=== PATIENT | female | born 1965 | race Caucasian/White ===

== ENCOUNTER → 2017-11-04 | Outpatient (CLI) | payer BC ==
--- NOTE | 2017-11-11 08:06 | MM ---
Reason for exam: clinical finding. Last mammogram was performed 1 year and 7 months ago. History: Patient is postmenopausal, has history of breast cancer at age 37, and had first child at age 36. Malignant ultrasound-guided core biopsy of the left breast, June 04, 2003. Core biopsy of the left breast. Lumpectomy of the left breast. Chemotherapy. Radiation therapy of the left breast. Took hormonal contraceptives for 5 years. Took tamoxifen for 5 years 6 months beginning at age 37. Physical Findings: Nurse did not find any significant physical abnormalities on exam. MG 3D Diag Mammo W/Cad LT CC and MLO view(s) were taken of the left breast. Prior study comparison: March 10, 2017, mammogram, performed at [facility]. March 10, 2017, left breast ultrasound, performed at [facility]. May 12, 2016, mammogram, performed at [facility]. May 12, 2016, left breast ultrasound, performed at [facility]. March 24, 2016, bilateral MG 3d diag mammo w/cad [facility]. April 09, 2014, bilateral MG diagnostic mammo w CAD [facility]. The breast tissue is heterogeneously dense. This may lower the sensitivity of mammography. Post surgical and post therapy changes in the left breast. Surgical scar posteriorly appears stable. No significant new findings when compared with previous films. These results were verbally communicated with the patient on 11/10/17. ASSESSMENT: Incomplete: need additional imaging evaluation, BI-RAD 0 RECOMMENDATION: Ultrasound of the left breast.
--- NOTE | 2017-11-11 08:28 | USB ---
Reason for exam: clinical finding. History: Patient is postmenopausal, has history of breast cancer at age 37, and had first child at age 36. Malignant ultrasound-guided core biopsy of the left breast, June 04, 2003. Core biopsy of the left breast. Lumpectomy of the left breast. Chemotherapy. Radiation therapy of the left breast. Took hormonal contraceptives for 5 years. Took tamoxifen for 5 years 6 months beginning at age 37. US Breast LT Left breast ultrasound includes all four quadrants, the retroareolar region and axilla. Finding demonstrates a 0.4 x 0.3 x 0.4cm oval, circumscribed lesion too small to characterize at 5 o'clock stable from 03/10/17 and a scar with shadowing at the 5 o'clock lumpectomy site. No abnormality seen in the axilla. These results were verbally communicated with the patient and result sheet given to the patient on 11/04/17. ASSESSMENT: Benign, BI-RAD 2 RECOMMENDATION: Follow-up diagnostic mammogram of both breasts in 4 months. Back on schedule. Manage on a clinical basis with regard to left breast pain and nipple discharge. Suspicious discharge that would warrant further evaluation is clear or bloody spontaneous discharge localized to a single pore on the nipple. MTDD
== END | disposition home or self-care (01) ==
LOC: RADMAMWWP 08:42
PROVIDERS: ATTEND Internal Medicine Hematology & Oncology
DX: R92.8 Other abnormal and inconclusive findings on diagnostic imaging of breast (principal); N64.52 Nipple discharge; N63.20 Unspecified lump in the left breast, unspecified quadrant; Z85.3 Personal history of malignant neoplasm of breast
CPT/HCPCS: 77065; 76641; G0279

== ENCOUNTER → 2017-11-22 | Outpatient (CLI) | payer BC ==
--- NOTE | 2017-11-23 09:02 | BMR ---
EXAMINATION TYPE: MR breast BILAT wo/w con DATE OF EXAM: 11/22/2017 9:10 PM COMPARISON: Mammography of November 04, 2017 and ultrasound same day. Outside ultrasound and mammography 03/10/2017. Outside ultrasound on 05/12/2016. HISTORY: Lumpectomy Left 2002, Breast CA 2003,Gadavist 7.5, Pt is Menopausal CONTRAST: The patient was injected with 7.5 mL intravenous Gadavist gadolinium contrast. TECHNIQUE: Precontrast T1 and T2 coronal, axial and high-resolution STIR sagittal images were acquire d. Postcontrast dynamic images were acquired.This study was processed using a [employer] computer-aid ed detection system to optimize radiologist interpretation by generating multiplanar and three-dimens ional reconstructions, creating subtraction images from the dynamic contrast data and computing tumor volumes and dimensions. FINDINGS: Right breast: There is scattered fibroglandular tissue seen with mild adenosis present. There is no evidence for an enhancing mass or pathologic enhancement. No skin thickening or nipple retraction is seen. No axillary adenopathy present. Left breast: The left breast is diminutive in size secondary to prior history of lumpectomy and radia tion therapy. There is scattered fibroglandular tissue seen with mild adenosis present. 4 mm left 5:0 0 lesion corresponding to the ultrasound abnormality demonstrates nonspecific enhancement. Consider t issue diagnosis. Lesion is stable dating back to 2017. Slight increase in size from 2016 ultrasound. No skin thickening or nipple retraction is seen. No axillary adenopathy present. IMPRESSION: 1. Right breast: Negative BI-RADS 1 2. Left breast: Suspicious BI-RADS 4 RECOMMENDATION: Ultrasound-guided core biopsy left 5:00 lesion. MR is approximately 98% specific in excluding invasive or infiltrative malignant neoplasm when hypova scularity or absence of enhancement is determined. Rare hypovascular neoplasms include mucinous carci nomas and tubular carcinomas. MR may not detect low-grade of DCIS and unusual instances of hypovascu lar lobular carcinomas have been reported. Mr breast findings should not be used to mitigate against biopsy in cases where there is substantive mammographic evidence of malignancy. Mri is not a suitab le substitute for yearly screening mammogram unless the patient has extremely dense breasts and the m ammography study is limited or un-interpretable at which point the decision to substitute MR is at th e discretion of the patient and the patients clinician.
== END | disposition home or self-care (01) ==
LOC: RADMRIMAIN 18:58
PROVIDERS: ATTEND Internal Medicine Hematology & Oncology
DX: C50.919 Malignant neoplasm of unspecified site of unspecified female breast (principal); N64.52 Nipple discharge
CPT/HCPCS: 77059; 0159T; A9581

== ENCOUNTER → 2018-03-07 | Outpatient (CLI) | payer BC ==
--- NOTE | 2018-03-07 09:47 | MM ---
Reason for exam: follow-up at short interval from prior study. Last mammogram was performed 3 months ago. History: Patient is postmenopausal, has history of breast cancer at age 37, and had first child at age 36. Benign US biopsy breast VAD LT of the left breast, December 08, 2017. Malignant ultrasound-guided core biopsy of the left breast, June 04, 2003. Core biopsy of the left breast. Lumpectomy of the left breast. Chemotherapy. Radiation therapy of the left breast. Took hormonal contraceptives for 5 years. Took tamoxifen for 5 years 6 months beginning at age 37. Physical Findings: Nurse did not find any significant physical abnormalities on exam. MG 3D Diag Mammo W/Cad [facility] Bilateral CC and MLO view(s) were taken. Prior study comparison: December 08, 2017, left breast MG diagnostic mammo LT wo CAD. November 04, 2017, left breast MG 3d diag mammo w/cad LT. The breast tissue is heterogeneously dense. This may lower the sensitivity of mammography. No suspicious abnormality. Post therapy change on the left breast. Left biopsy marker noted. These results were verbally communicated with the patient and result sheet given to the patient on 03/07/18. ASSESSMENT: Benign, BI-RAD 2 RECOMMENDATION: Follow-up diagnostic mammogram of both breasts in 1 year.
== END | disposition home or self-care (01) ==
LOC: RADMAMWWP 08:51
PROVIDERS: ATTEND Internal Medicine Hematology & Oncology
DX: R92.8 Other abnormal and inconclusive findings on diagnostic imaging of breast (principal); Z85.3 Personal history of malignant neoplasm of breast
CPT/HCPCS: 77062; 77066

== ENCOUNTER → 2023-03-23 | Outpatient (CLI) | payer BC ==
--- NOTE | 2023-03-23 09:11 | MM ---
Reason for Exam: Screening (asymptomatic). Last mammogram was performed 5 year(s) and 0 month(s) ago. Patient History: Menarche at age 11. First Full-Term at age 36. Late child-bearing (after 30). Left ovary removed at age 38. Right ovary removed at age 38. Hysterectomy at age 38. Postmenopausal. Breast cancer, left, age 37. Patient used Hormonal Contraceptives for 5 years. Tamoxifen for 5 years, 6 months, from age 37 until age 42. Lumpectomy on the Left side. Core Biopsy on the Left side. 12/08/2017, Benign Core Biopsy on the left side. 06/04/2003, Malignant Ultrasound-Guided Core Biopsy on the left side. Radiation Therapy, left. Chemotherapy. Prior Study Comparison: 11/04/2017 Left Diagnostic Mammogram, [facility]. 12/08/2017 Left Diagnostic Mammogram, [facility]. 03/07/2018 Bilateral Diagnostic Mammogram, [facility]. Tissue Density: The breast tissue is heterogeneously dense. This may lower the sensitivity of mammography. Findings: Analyzed By CAD. Stable post procedure changes left breast. There is no suspicious group of microcalcifications or new suspicious mass in either breast. Overall Assessment: Benign, BI-RAD 2 Management: Screening Mammogram of both breasts in [address] [facility] will attempt to contact patient to return for supplemental views and ultrasound if indicated. Patient should continue monthly self-breast exams. A clinical breast exam by your physician is recommended on an annual basis. This exam should not preclude additional follow-up of suspicious palpable abnormalities. Note on Sinai scores and lifetime risk: 1. A Sinai score greater than 3% is considered moderate risk. If this is the case, consider specialist referral to assess eligibility for a risk reducing agent. 2. If overall lifetime risk for the development of breast cancer is 20% or higher, the patient may qualify for future screening with alternating mammogram and breast MRI. Electronically signed and approved by: Emil Woods DO
== END | disposition home or self-care (01) ==
LOC: RADMAMWWP 07:00
PROVIDERS: ATTEND Student in an Organized Health Care Education/Training Program
DX: Z12.31 Encounter for screening mammogram for malignant neoplasm of breast (principal); Z78.0 Asymptomatic menopausal state; Z85.3 Personal history of malignant neoplasm of breast
CPT/HCPCS: 77063; 77067

== ENCOUNTER → 2024-06-26 | Outpatient (CLI) | payer BC ==
--- NOTE | 2024-06-26 07:33 | MM ---
Reason for Exam: Clinical finding. Last mammogram was performed 1 year(s) and 3 month(s) ago. Patient History: Menarche at age 11. First Full-Term at age 36. Late child-bearing (after 30). Left ovary removed at age 38. Right ovary removed at age 38. Hysterectomy at age 38. Postmenopausal. Breast cancer, left, age 37. Previous chest radiation therapy at age 37. Previous chemotherapy at age 37. Patient used Hormonal Contraceptives for 5 years. Tamoxifen for 5 years, 6 months, from age 37 until age 42. Lumpectomy on the Left side. Core Biopsy on the Left side. 12/08/2017, Benign Core Biopsy on the left side. 06/04/2003, Malignant Ultrasound-Guided Core Biopsy on the left side. Radiation Therapy, left. Chemotherapy. Prior Study Comparison: 11/22/2017 Bilateral Diagnostic Breast MRI, [facility]. 12/08/2017 Left Diagnostic Mammogram, [facility] 03/07/2018 Bilateral Diagnostic Mammogram, [facility]. 03/23/2023 Bilateral MG 3D screening mammo w/cad, [facility]. Tissue Density: There are scattered areas of fibroglandular density. Findings: Analyzed By CAD. Postsurgical and posttreatment change redemonstrated in left breast. Additional microclip left breast from prior biopsy. There is a marker along the upper outer quadrant of the left breast indicating the site of patient's soreness/altered sensation. Areas of asymmetric density on the left remain unchanged. No significant change from prior exams. Overall Assessment: Incomplete: need additional imaging evaluation, BI-RAD 0 Management: Diagnostic Breast Ultrasound of the left breast. At the site of symptoms. [facility], , 06/26/2024 7:29 AM. Electronically signed and approved by: Alyssa Schmidt M.D. Radiologist
--- NOTE | 2024-06-26 07:49 | USB ---
Reason for Exam: Clinical finding. Patient History: Menarche at age 11. First Full-Term at age 36. Late child-bearing (after 30). Left ovary removed at age 38. Right ovary removed at age 38. Hysterectomy at age 38. Postmenopausal. Breast cancer, left, age 37. Previous chest radiation therapy at age 37. Previous chemotherapy at age 37. Patient used Hormonal Contraceptives for 5 years. Tamoxifen for 5 years, 6 months, from age 37 until age 42. Lumpectomy on the Left side. Core Biopsy on the Left side. 12/08/2017, Benign Core Biopsy on the left side. 06/04/2003, Malignant Ultrasound-Guided Core Biopsy on the left side. Radiation Therapy, left. Chemotherapy. Technique: Method: Targeted. Prior Study Comparison: 12/08/2017 Left Diagnostic Mammogram, [facility]. 03/07/2018 Bilateral Diagnostic Mammogram, [facility]. 03/23/2023 Bilateral MG 3D screening mammo w/cad, [facility]. Findings: The lateral section of the breast of the left breast, the axilla of the left breast and the retroareolar of the left breast were scanned. Targeted ultrasound lateral half of the left breast 12:00 to 6:00 including scanning of the subareolar region and axilla. No solid or cystic lesions. Surgical scar is noted at the 4:00 position. Normal, benign-appearing lymph node within the left axilla. Overall Assessment: Benign, BI-RAD 2 Management: Screening Mammogram of both breasts in 1 year. Further clinical management of patient's left breast soreness and altered sensation. A clinical breast exam by your physician is recommended on an annual basis and results should be correlated with mammographic findings. This exam should not preclude additional follow-up of suspicious palpable abnormalities. Results were given to the patient verbally at the time of exam. [facility], , 06/26/2024 7:45 AM. Electronically signed and approved by: Alyssa Schmidt M.D. Radiologist
--- NOTE | 2024-06-26 17:34 | BD ---
EXAMINATION TYPE: Axial Bone Density DATE OF EXAM: 06/26/2024 CLINICAL HISTORY: 58 years old Female. ICD-10 CODE: Z78.0 MENOPAUSAL STATE W/O HRT Height: 63 Weight: 176 FRAX RISK QUESTIONS: Secondary Osteoporosis: 3. Menopause before 45: yes RISK FACTORS HISTORY OF: MEDICATIONS: EXAM MEASUREMENTS: Bone mineral densitometry was performed using the [employer] System. Bone mineral density as measured about the Lumbar spine is: ----- L1-L4(G/cm2): 0.958 T Score Values are as follows: ----- L1: -2.9 ----- L2: -2.0 ----- L3: -1.7 ----- L4: -1.2 ----- L1-L4: -1.9 Z Score Values are as follows: ----- L1: -2.2 ----- L2: -1.3 ----- L3: -1.1 ----- L4: -0.6 ----- L1-L4: -1.2 Bone mineral density has: Decreased -20.2% since study of: 03-04-04 Bone mineral density about the R hip (g/cm2): 0.897 Bone mineral density about the L hip (g/cm2): 0.930 T Score values are as follows: -----R Neck: -1.6 -----L Neck: -1.4 -----R Total: -0.9 -----L Total: -0.6 Z Score values are as follows: -----R Neck: -0.8 -----L Neck: -0.5 -----R Total: -0.3 -----L Total: -0.1 Bone mineral density has: Decreased -12.1% since study of: 03-04-04 FRAX%s: The graph provided illustrates a 7.6% chance for a major osteoporotic fx and a 0.7% chance fo r the hips probability for fx in 10 years time. IMPRESSION: Osteopenia (T Score between -2.5 and -1). There is slightly increased risk of fracture and the patient may be considered for treatment. Re-Screen 2-5 years. NOTE: T-SCORE=SD OF THE YOUNG ADULT MEAN. [facility], , 06/26/2024 5:32 PM
== END | disposition home or self-care (01) ==
LOC: RADMAMWWP 06:52
PROVIDERS: ATTEND Family Medicine
CPT/HCPCS: 77062; 77066; 77080

== ENCOUNTER → 2024-07-13 | Outpatient (CLI) | payer BC ==
[2024-07-13 16:52] VITALS: BP 149/94; PULSE 68; RESP 16; TEMP 97.4
--- NOTE | 2024-07-13 17:31 | P.SLEEP ---
History of Present Illness DATE: 07/13/2024 CONSULTATION/NEW PATIENT EVALUATION HISTORY OF PRESENT ILLNESS/SLEEP-WAKE EVALUATION: 58-year-old lady had been evaluated in the sleep center for possible obstructive sleep apnea hypopnea syndrome. SLEEP SCHEDULE: Usually sleep schedule from 10 PM to 5:30 AM on weekdays and to 6 AM on weekend. FALLING ASLEEP: No problems with falling asleep. DURING SLEEP: Patient has loud snoring and witnessed episodes of stop breathing during the sleep by her , positive history of grinding and clenching teeth. Patient wakes up from sleep 3 times with 1 episode of nocturia. No history of hypnogogical hallucinations, sleep paralysis, or cataplexy. DURING THE DAY/WAKE STATE: In the morning patient wake up tired, has problems with memory. [place] sleepiness scale is 5. Usually patient does not take naps. PAST MEDICAL HISTORY: Hypertension. PAST SURGICAL HISTORY: Tonsillectomy, total hysterectomy, hernia repair. MEDICATIONS: Please see below. SOCIAL HISTORY: Please see below. FAMILY HISTORY: Please see below. REVIEW OF SYSTEMS: Snoring, multiple awakenings from sleep. No fevers. No double vision. No recent chest pain. No shortness of breath. No abdominal pain. No bleeding episodes. No blood in urine. No seizure episodes. PHYSICAL EXAMINATION: GENERAL: A pleasant patient without any distress. VITAL SIGNS: Please see below, weight 174 pounds, BMI 30.8. HEENT: PERRLA, EOMI. Evaluation of oropharynx showed tongue protrudes midline, low position of soft palate Mallampati 4. NECK: Supple. No JVD. Thyroid is not palpable. 13-1/4 inches in circumference. LUNGS: Clear to percussion and to auscultation. Good air exchange. No wheezing or rhonchi. HEART: S1, S2 regular. No murmurs, gallops or rubs. ABDOMEN: Soft and nontender. Bowel sounds are present. No organomegaly appreciated. EXTREMITIES: No clubbing or cyanosis. PHARMACY BUYER: Awake, alert, and oriented x3. Cranial nerves 2 to 7 intact. There is no fasciculation or atrophy noted. No focal deficits observed. ASSESSMENT: 1. Loud snoring, witnessed episodes of stop breathing during the sleep, extremely low position of soft palate Mallampati 4. Obstructive sleep apnea hypopnea syndrome. 2. Mild obesity, BMI 30.8. 3. Hypertension. 4. Status post tonsillectomy. 5 status post total hysterectomy. 6 . Status post hernia repair. 7. Status post lumpectomy, radiation and chemotherapy for left breast cancer. PLAN: 1. Polysomnography for evaluation of patient's breathing during sleep. 2. Following plan after reading sleep study. 3. Preferable position during sleep on the side. 4. No driving if patient feels any sleepiness. Patient is aware of civil and criminal liability for unsafe driving. 5. Sleep hygiene with regular sleep time for at least 7.5-8 hours. 6. Watching weight. Thank you very much for referring this patient for consultation. Sincerely, Tom Morgan MD, PhD, FAASM. Diplomat of [place] [employer], Sleep Medicine Board by [place] [employer] [place] [employer] International Accounting Manager of [facility] [place] cc: Eboni Ibarra MD, Eboni Waters [facility] Past Medical History Past Medical History: Cancer, Hypertension Additional Past Medical History / Comment(s): left breast cancer with lumpectomy/radiation/chemotherapy-2002. History of Any Multi-Drug Resistant Organisms: None Reported Past Surgical History: Breast Surgery, Hernia Repair, Tonsillectomy Additional Past Surgical History / Comment(s): lumpectomy Past Anesthesia/Blood Transfusion Reactions: Postoperative Nausea & Vomiting (PONV) Past Psychological History: No Psychological Hx Reported Smoking Status: Never smoker Past Alcohol Use History: Occasional Past Drug Use History: None Reported - Past Family History Mother Family Medical History: Hypertension, Osteoarthritis (OA), Thyroid Disorder Additional Family Medical History / Comment(s): insomnia Father Family Medical History: Cancer, Hypertension Medications and Allergies Home Medications Medication Instructions Recorded Confirmed Type NIFEdipine XL [Procardia XL] 30 mg PO DAILY 07/13/24 07/13/24 History Allergies Allergy/AdvReac Type Severity Reaction Status Date / Time iodine Allergy Vomiting Verified 12/08/17 11:47 Penicillins AdvReac Rash/Hives Verified 12/08/17 11:47 Sulfa (Sulfonamide AdvReac Rash/Hives Verified 12/08/17 11:47 Antibiotics) Physical Exam Vitals: Vital Signs Temp Pulse Resp BP Pulse Ox 07/13/24 16:51 97.4 F L 68 16 149/94 97 Intake and Output 11/14/24 11/14/24 11/14/24 06:59 14:59 22:59 Other: Weight 78.925 kg Sleep Note - Sleep Data ESS Total: 5 - Sleep Note Sleep Note: Temperature: 97.4 F Pulse Rate: 68 Respiratory Rate: 16 Blood Pressure: 149/94 SpO2: 97 Height: 5 ft 3 in Weight: 78.925 kg BMI: Neck Circumference: 13.2
== END ==
LOC: 3 N SLEEP 15:31
PROVIDERS: ATTEND Internal Medicine
DX: G47.33 Obstructive sleep apnea (adult) (pediatric) (principal); I10 Essential (primary) hypertension; E66.9 Obesity, unspecified; Z98.890 Other specified postprocedural states; Z90.710 Acquired absence of both cervix and uterus; Z90.49 Acquired absence of other specified parts of digestive tract; Z85.3 Personal history of malignant neoplasm of breast; Z92.3 Personal history of irradiation; Z68.30 Body mass index [BMI] 30.0-30.9, adult; Z90.89 Acquired absence of other organs; Z88.8 Allergy status to other drugs, medicaments and biological substances; Z88.0 Allergy status to penicillin; Z88.2 Allergy status to sulfonamides
CPT/HCPCS: 99211

== ENCOUNTER → 2024-07-25 | Outpatient (CLI) | payer BC ==
--- NOTE | 2024-08-29 11:43 | P.PCN ---
Description of Procedure: CLINICAL: A home sleep apnea test has been done for confirmation of possible obstructive sleep apnea-hypopnea syndrome. DESCRIPTION OF PROCEDURE: RESULTS: Recording time was 8 hours 5 minutes. Evaluation time was 7 hours 53 minutes. Evaluation time is sufficient for making conclusion about results of the test. Raw data of sleep recording has been reviewed and is adequate. Respiratory channel showed 0 apneas and 40 hypopneas. Apnea-hypopnea index was 5.1 per hour. Pulse rate in the range between minimum 42, maximum 91, average 50 by computer calculation. Lowest desaturation was 88%. IMPRESSION: 1. Mild Obstructive Sleep Apnea Hypopnea Syndrome. 2. Hypertension. Please see other impressions from consultation. PLAN: 1. The patient will be started on auto-PAP treatment for correction of respiratory abnormallities during sleep. 2. I will see patient for follow up visit to discuss results of the test, evaluate clinical response on treatment with PAP therapy and make any necessary adjustments related to mask fitting, pressure, and humidification. 3. Watching and losing weight. 4. Sleep hygiene with regular time in bed for at least 8 hours. 5. No driving if feeling any sleepiness. Thank you very much for allowing me to participate in the management of your patient. Sincerely, Tom Morgan MD, PhD, FAASM Diplomat of [place] [employer] Sleep Medicine Board of [place] [employer] Shop Superintendent of [facility] [place] cc: Eboni Ibarra MD
== END ==
LOC: 3 N SLEEP 16:35
PROVIDERS: ATTEND Internal Medicine
DX: G47.33 Obstructive sleep apnea (adult) (pediatric) (principal); I10 Essential (primary) hypertension; Z88.0 Allergy status to penicillin; Z88.2 Allergy status to sulfonamides; Z91.048 Other nonmedicinal substance allergy status

== ENCOUNTER → 2024-11-02 | Outpatient (CLI) | payer BC ==
--- NOTE | 2024-11-02 16:49 | P.PROGSL ---
Subjective DATE: 11/02/2024 FOLLOW UP VISIT. Patient with obstructive sleep apnea hypopnea syndrome return to sleep center for follow-up visit. Information from previous visit have been reviewed. This is first visit after patient was started on treatment with CPAP. I discussed results of sleep studies with patient in details. Patient feels improvement after CPAP was started. Patient is using PAP equipment every night for the whole night, getting PAP supplies in time. The patient does not have significant problems with the mask, PAP unit and humidification. [place] sleepiness scale is 3, which is perfect. I checked information from PAP unit. PAP unit pressure 5-12, average 8.7 cm H2O. Usage is 77% and 70% for more then 4 hours, average 6.5 hours per night. Leak is 2.3 l/m, which is in acceptable range. Apnea Hypopnea Index is 0.1, which is normal. MEDICATIONS have been reviewed, please see below. During physical exam: GENERAL: A pleasant patient without any distress. VITAL SIGNS: Please see below, weight is 176 lbs. HEENT: PERRLA, EOMI.low position of soft palate, Mallapati 4 . NECK: Supple. No JVD. LUNGS: Clear to percussion and to auscultation. Good air exchange. No wheezing or rhonchi. HEART: S1, S2 regular. ABDOMEN: Soft and nontender.[] EXTREMITIES: No clubbing or cyanosis. HEATSET WINDER OPERATOR: Awake, alert, and oriented x3. No focal deficit. Impressions: 1. Obstructive sleep apnea-hypopnea syndrome. Patient demonstrated good compliance with treatment, benefiting from treatment. 2. Hypertension. 3. Obesity. 4. Status post tonsillectomy. 5. Status post total hysterectomy. 6. Status post hernia repair. 7. Status post lumpectomy, radiation therapy and chemotherapy for left breast cancer. Plan: 1. Continue using PAP equipment every night for the whole night. 2. Sleep hygiene with regular time in bed for at least 7.5-8 hours 3. PAP unit should stay lower then position of the head. 4. Advised patient to remove all remaining water from humidifier canister daily and make it dry after each usage. Refill canister with fresh distilled water before each usage. 5. Watching weight. 6. Precautions related to driving. No driving if feel any sleepiness. 7. I will maintain prescription for PAP supplies including mask, tube, filters. 8. Follow up visit in 8 months or earlier if patient has any problems. Thank you very much for allowing me to participate in the management of your patient. Tom Morgan MD, PhD, FAASM. Diplomat of [place] [employer], Sleep Medicine Board by [place] [employer] Grounds Crew Supervisor of [facility] [place] Objective Home Medications: Home Medications Medication Instructions Recorded Confirmed Type NIFEdipine XL [Procardia XL] 30 mg PO DAILY 07/13/24 07/13/24 History
== END ==
LOC: 3 N SLEEP 15:34
PROVIDERS: ATTEND Internal Medicine
DX: G47.33 Obstructive sleep apnea (adult) (pediatric) (principal); E66.9 Obesity, unspecified; I10 Essential (primary) hypertension; Z90.89 Acquired absence of other organs; Z90.710 Acquired absence of both cervix and uterus; Z92.3 Personal history of irradiation; Z92.21 Personal history of antineoplastic chemotherapy; Z85.3 Personal history of malignant neoplasm of breast; Z91.041 Radiographic dye allergy status; Z88.0 Allergy status to penicillin; Z88.2 Allergy status to sulfonamides; Z98.890 Other specified postprocedural states
CPT/HCPCS: 99212